=== PATIENT | female | born 1985 | race Caucasian/White ===

== ENCOUNTER 2018-02-21 14:48 | Emergency (ER) | payer SELFPAY ==
[2018-02-21 15:53] LABS: #Basophils 0.1 thou/uL (0.0-0.2); #Monocytes 0.7 thou/uL (0.11-0.59); #Neutrophils 6.9 thou/uL (1.40-6.50); %Basophils 0.8 % (0.0-1.0); %Eosinophils 0.2 % (0.0-10.0); %Lymphocytes 20.3 % (21.0-51.0); %Monocytes 7.5 % (0.0-10.0); %Neutrophils 71.1 % (42.0-75.0); Hemoglobin 12.6 g/dL (12.0-16.0); Mean Corpuscular HGB CONC 34.2 g/dL (32.0-36.0); Mean Corpuscular Volume 84.9 fL (78.0-98.0); Mean Platelet Volume 6.7 fL (7.4-10.4); Platelet Count 317 thou/uL (130-400); RBC Distribution Width 13.7 % (11.5-14.5); Red Blood Cell (RBC) Count 4.35 mill/uL (4.20-5.40); White Blood Cell (WBC) Count 9.7 thou/uL (4.8-10.8)
[2018-02-21] MEDS ORDERED: Lorazepam 2 MG/ML VIAL ONE (15:54)
[2018-02-21 16:17] LABS: ALT (SGPT) 22 U/L (8-55); AST (SGOT) 22 U/L (5-34); Acetaminophen Less than 6.0 mcg/mL (10.0-30.0); Albumin 4.8 g/dL (3.5-5.0); Alcohol Less than 10 mg/dL (Less than 10); Alkaline Phosphatase 83 U/L (40-150); Anion Gap 15 mmol/L (10-20); BUN (Urea Nitrogen) 11 mg/dL (7.0-18.7); Bilirubin, Total 1.7 mg/dL (0.2-1.2); CK (CPK) 306 U/L (29-168); Calc. Creatinine Clearance 0 mL/min (70-130); Calcium 9.7 mg/dL (7.8-10.44); Carbon Dioxide 24 mmol/L (22-29); Chloride 108 mmol/L (98-107); Estimated GFR-MDRD 65; Globulin 3.4 g/dL (2.4-3.5); Glucose 104 mg/dL (70-105); Potassium 4.2 mmol/L (3.5-5.1); Protein, Total 8.2 g/dL (6.0-8.3); Salicylate Less than 8.0 mg/dL (15.0-30.0); Sodium 143 mmol/L (136-145)
[2018-02-21] MEDS ORDERED: Ziprasidone 20 MG VIAL ONE (17:27)
[2018-02-21] MEDS ORDERED: Water For Inject, Bacteriostat 30 ML ONE (17:28)
[2018-02-21] MEDS ORDERED: Sterile Water 10 ML ONE (17:31)
[2018-02-21 17:34] LABS: Bilirubin Negative (Negative); Blood, Urine Negative (Negative); Clarity CLEAR (Clear); Glucose, Urine (Dipstick) Negative (Negative); Leukocyte Small (Negative); Nitrite Negative (Negative); Protein, Urine (Dipstick) 30 mg/dL (Neg-Trace); Specific Gravity, Urine 1.024 (1.002-1.036); Urobilinogen 0.2 mg/dL (0.2-1.0)
[2018-02-21 17:37] LABS: Bacteria/HPF None Seen HPF (None Seen); Pregnancy Test - Urine (BHCG) Negative (Negative); Pregu Control Background? CLEAR/WHITE (CLR/WHITE); Pregu Control Bar Appear? YES (CONTROL BAR); Specific Gravity 1.024 (1.002-1.036); WBC/HPF 0-3 HPF (0-3)
[2018-02-21 17:41] LABS: Pathc Cast-AUWi Flag 6.97 (0-2.49)
[2018-02-21 17:42] LABS: Hyaline Casts/LPF 0-3 HYALINE CAST LPF (0-3 Hyaline); Manual Microscopic Reviewed? No Path Casts Seen
[2018-02-21 17:43] LABS: Amphetamine Detected (NotDetected); Barbiturates Screen Not Detected (NotDetected); Benzodiazepine Screen Not Detected (NotDetected); Cocaine Metabolite Screen Detected (NotDetected); Medtox Control Line Valid? VALID (VALID); Medtox Reader # READER 1; Methadone Not Detected (NotDetected); Methamphetamine Not Detected (NotDetected); Opiate Screen Not Detected (NotDetected); Oxycodone Screen Not Detected (NotDetected); Phencyclidine (PCP) Not Detected (NotDetected); THC/Cannabinoid Screen Detected (NotDetected); Tricyclic Screen Not Detected (NotDetected)
[2018-02-22] MEDS ORDERED: Ziprasidone 20 MG CAP ONE (09:58)
[2018-02-22] MEDS ORDERED: Lorazepam 2 MG/ML VIAL ONE (10:59)
[2018-02-24] MEDS ORDERED: traZODone HCl 50 MG TAB PO SCH (21:00)
--- NOTE | 2018-02-26 11:29 | EKG ---
Test Reason : Blood Pressure : / mmHG Vent. Rate : 116 BPM Atrial Rate : 116 BPM P-R Int : 096 ms QRS Dur : 072 ms QT Int : 328 ms P-R-T Axes : 057 074 -10 degrees QTc Int : 455 ms Sinus tachycardia with short IA Abnormal QRS-T angle, consider primary T wave abnormality Abnormal ECG Confirmed by ANNA MICHAELS DO ([id number]), editor managing newspaper TEQUILA SAVAGE ([id number]) on 02/26/2018 11:29:26 AM Referred By: Confirmed By:ANNA MICHAELS DO
== END 2018-02-27 04:30 ==
LOC: ERS 14:48 → EDBD 14:48 → ERS 02-27 04:30
DX: F29 Unspecified psychosis not due to a substance or known physiological condition (principal); F30.9 Manic episode, unspecified
CPT/HCPCS: 51701; 80053; 80306; 80307; 81003; 81015; 81025; 82550; 84443; 85025; 93005; 96361; 96372; 96374; A4216; J2060; J3486